=== PATIENT | female | born 1965 | race African-American/Black ===

== ENCOUNTER 2016-10-25 01:00 | Emergency (ER) | payer MEDICARE ==
[~2016-10-25] VITALS: Ht 162.6 cm; Wt 100.0 kg
[2016-10-25 01:39] VITALS: BP 121/83
== END 2016-10-25 03:46 | disposition home or self-care (01) ==
LOC: ER 01:00
DX: B86 Scabies (principal); F17.200 Nicotine dependence, unspecified, uncomplicated; F11.10 Opioid abuse, uncomplicated; E03.9 Hypothyroidism, unspecified; E78.00 Pure hypercholesterolemia, unspecified
CPT/HCPCS: 99283

== ENCOUNTER 2017-11-05 20:19 | Emergency (ER) | payer MEDICARE, MEDICAID ==
[~2017-11-05] VITALS: Ht 162.6 cm; Wt 94.0 kg
[2017-11-06 01:06] LABS: CLARITY URINE CLEAR (CLEAR); COLOR URINE YELLOW (YELLOW); KETONES URINE NEGATIVE (NEGATIVE); LEUKOCYTE ESTERASE URINE NEGATIVE (NEGATIVE); NITRITE URINE NEGATIVE (NEGATIVE); OCCULT BLOOD URINE 1+ (NEGATIVE); PROTEIN URINE NEGATIVE (NEGATIVE); SPECIFIC GRAVITY URINE 1.031 (1.005-1.030); UROBILINOGEN URINE 0.2 E.U./dL (0.2-1.0)
[2017-11-06 01:16] LABS: *AMPHETAMINES SCREEN URINE NEGATIVE (NEGATIVE); *BARBITURATES SCREEN URINE NEGATIVE (NEGATIVE); *BENZODIAZEPINES SCREEN URINE NEGATIVE (NEGATIVE)
[2017-11-06 01:17] LABS: *COCAINE SCREEN URINE NEGATIVE (NEGATIVE); CANNABINOID URINE SCREEN NEGATIVE (NEGATIVE); METHADONE URINE SCREEN NEGATIVE (NEGATIVE); OPIATES URINE SCREEN PRESUMTIVE POSITIVE (NEGATIVE); PHENCYCLIDINE URINE SCREEN NEGATIVE (NEGATIVE)
[2017-11-06 03:14] LABS: CHLORIDE 107 mEq/L (98-107)
[2017-11-06 03:15] LABS: BASOPHILS % 0.4 % (0.0-2.0); EOSINOPHILS % 2.8 % (0.0-5.0); HEMATOCRIT. 40.4 % (36.0-48.0); HEMOGLOBIN. 13.2 g/dL (12.0-16.0); LYMPHOCYTES % 35.1 % (20.0-50.0); MEAN CORPUSCULAR HEMOGLOBIN 28.4 pg (28.0-32.0); MEAN CORPUSCULAR VOLUME 86.5 fL (81.0-99.0); MEAN PLATELET VOLUME 8.2 fl (7.4-10.4); MONOCYTES % 7.2 % (2.0-8.0); NEUTROPHILS % 54.5 % (40.0-76.0); PLATELET 277 x1000/uL (130-400); RED BLOOD CELL COUNT 4.67 mill/uL (4.2-5.4); RED CELL DISTRIBUTION WIDTH 13.6 % (11.6-14.6)
[2017-11-06 03:18] LABS: ETHANOL BLOOD < 10 mg/dL
[2017-11-06 03:28] LABS: HCG SCREEN NEGATIVE
[2017-11-06] MEDS ORDERED: LORAZEPAM 1MG TABLET PO ONE (13:15)
[2017-11-06 17:41] VITALS: BP 118/73
== END 2017-11-06 21:15 ==
LOC: ER 20:19
DX: F41.9 Anxiety disorder, unspecified (principal); R45.851 Suicidal ideations; F32.9 Major depressive disorder, single episode, unspecified; F43.10 Post-traumatic stress disorder, unspecified; F17.200 Nicotine dependence, unspecified, uncomplicated; Z96.649 Presence of unspecified artificial hip joint
CPT/HCPCS: 36415; 80053; 80305; 80307; 80329; 81003; 84703; 85025; 99284; G0482

== ENCOUNTER 2022-07-21 15:22 | Emergency (ER) | payer MEDICAID, MEDICARE ==
[~2022-07-21] VITALS: Ht 165.1 cm; Wt 75.0 kg
[2022-07-21] MEDS ORDERED: ONDANSETRON HCL 4MG/2ML INJ IV ONE (15:45)
[2022-07-21] MEDS ORDERED: SODIUM CHLORIDE 0.9% 1,000 ML IV ONE (15:45)
[2022-07-21 15:55] LABS: CHLORIDE 108 mEq/L (98-107)
[2022-07-21 15:58] LABS: BASOPHILS % 0.5 % (0.0-2.0); HEMATOCRIT. 39.3 % (36.0-48.0); HEMOGLOBIN. 13.1 g/dL (12.0-16.0); LYMPHOCYTES % 33.2 % (20.0-50.0); MEAN CORPUSCULAR VOLUME 83.9 fL (81.0-99.0); MEAN PLATELET VOLUME 7.9 fl (7.4-10.4); MONOCYTES % 6.6 % (2.0-8.0); NEUTROPHILS % 56.7 % (40.0-76.0); PLATELET 298 x1000/uL (130-400); RED BLOOD CELL COUNT 4.68 mill/uL (4.2-5.4); RED CELL DISTRIBUTION WIDTH 13.3 % (11.6-14.6)
[2022-07-21] MEDS ORDERED: PANTOPRAZOLE SODIUM 40 MG/VIAL IV ONE (16:15)
[2022-07-21 18:00] VITALS: BP 107/80
[2022-07-21] MEDS ORDERED: OMEP40CA20 PO (18:00)
[2022-07-21] MEDS ORDERED: SUCR1TAB PO (18:00)
== END 2022-07-21 18:26 | disposition home or self-care (01) ==
LOC: ER 15:22
DX: K21.9 Gastro-esophageal reflux disease without esophagitis (principal); R11.2 Nausea with vomiting, unspecified; F31.9 Bipolar disorder, unspecified; Z87.19 Personal history of other diseases of the digestive system
CPT/HCPCS: 36415; 80053; 83690; 85025; 96374; 96375; 99284; C9113; J2405; J7030; Z7610

== ENCOUNTER 2023-02-20 14:20 | Emergency (ER) | payer BC, MEDICAID ==
[~2023-02-20] VITALS: Ht 162.6 cm; Wt 100.0 kg
[~2023-02-20 14:20] MED LIST: OMEP40CA20 PO; SUCR1TAB PO
[2023-02-20 14:43] VITALS: O2SAT 99
[2023-02-20] MEDS ORDERED: AZIT250T12 MT (16:59)
[2023-02-20 17:30] VITALS: BP 140/71; PULSE 78; RESP 16; TEMP 97.9
== END 2023-02-20 17:46 | disposition home or self-care (01) ==
LOC: ER 14:20
DX: R09.81 Nasal congestion (principal); R05.9 Cough, unspecified; F31.9 Bipolar disorder, unspecified; Z20.822 Contact with and (suspected) exposure to COVID-19
CPT/HCPCS: 99284; 71045; 87426; C9803

== ENCOUNTER 2023-06-09 12:04 | Emergency (ER) | payer BC, MEDICAID ==
[~2023-06-09] VITALS: Ht 170.2 cm; Wt 99.0 kg
[~2023-06-09 12:04] MED LIST changes: +AZIT250T12 MT
[2023-06-09 12:13] VITALS: BP 133/74; O2SAT 100
[2023-06-09] MEDS ORDERED: NAPR-681 MT (15:30)
[2023-06-09] MEDS: KETOROLAC 15MG/ML VIAL IM ONE (15:34)
[2023-06-09 15:38] VITALS: PULSE 74; RESP 16; TEMP 98.4
== END 2023-06-09 15:44 | disposition home or self-care (01) ==
LOC: ER 12:04
DX: M25.512 Pain in left shoulder (principal); F31.9 Bipolar disorder, unspecified; Z96.653 Presence of artificial knee joint, bilateral
CPT/HCPCS: 99283; 73030; 96372; J1885